=== PATIENT | male | born 1935 | race Caucasian/White ===

== ENCOUNTER 2016-11-26 21:29 | Emergency (ER) | payer OTHER ==
[2016-10-15 16:42] VITALS: Ht 172.7 cm; Wt 95.3 kg
[~2016-11-26] VITALS: Ht 172.7 cm; Wt 95.3 kg
[~2016-11-26 21:29] MED LIST: ACET325T53 PO; AMPI1.5V IV; DOCU-144 PO; FAMO20TA8 PO; FURO-150 PO; GLIP5TAB13 PO; GLU850 PO; LISI10TA5 PO; LORA-258 PO; METO25TA6 PO; ONDA4TAB5 PO; POTA-118 PO; RIVA20TA PO; SIMV20TA2 PO; SSNOVOLOG SUBCUT; ZOLP5TAB2 PO; [UNRECOGNIZED DRUG - CODE] IV
--- NOTE | 2016-11-26 21:30 | NUR ---
Patient to ER bed 08 to gown for evaluation. Side rails up.
[2016-11-26 21:40] VITALS: BP 113/50; PULSE 79; RESP 16; TEMP 98.4; O2SAT 94
--- NOTE | 2016-11-26 21:40 | NUR ---
PT IN BED 8 S/P TRIP AND FALL, DENIES INJURIES. DR BLACKBURN AWARE.
--- NOTE | 2016-11-26 21:50 | NUR ---
Patient transported to radiology via GURNEY, accompanied by TAPPER HELPER.
--- NOTE | 2016-11-26 22:00 | NUR ---
Mary yancey in [facility] - 11/27/16 at 0006 by SDEDWLA Patient transported to radiology via deandra, accompanied by fire protection engineering technician.
--- NOTE | 2016-11-26 22:04 | NUR ---
Returned from radiology, back to [facility].
--- NOTE | 2016-11-26 22:06 | NUR ---
ER at bedside examining patient.
--- NOTE | 2016-11-26 22:30 | NUR ---
Mary yancey in [facility] - 11/27/16 at 0009 by SDEDWLA Returned from radiology, back to [facility].
[2016-11-26 22:41] LABS: BASOPHILS % (AUTO) 0.4 % (0.0-2.0); EOSINOPHILS % (AUTO) 0.1 % (0.0-4.0); HEMATOCRIT 28.9 % (36-54); HEMOGLOBIN 8.8 g/dL (14.0-18.0); LYMPHOCYTES # (AUTO) 0.7 K/uL (1.0-5.5); LYMPHOCYTES % (AUTO) 11.8 % (20.5-51.5); MEAN CORPUSCULAR HEMOGLOBIN 21 pg (27-31); MEAN CORPUSCULAR HGB CONC 31 % (32-36); MEAN CORPUSCULAR VOLUME 69 fL (79.0-98.0); MONOCYTES # (AUTO) 0.4 K/uL (0.0-1.0); NEUTROPHILS # (AUTO) 5.2 K/uL (1.8-7.7); NEUTROPHILS % (AUTO) 80.7 % (40.0-70.0); PLATELET COUNT (AUTO) 231 K/uL (130-430); RED BLOOD CELL COUNT(AUTO) 4.18 MIL/uL (4.2-6.2); RED CELL DISTRIBUTION WIDTH 21.4 % (9.0-15.0); WHITE BLOOD COUNT (AUTO) 6.4 K/uL (4.8-10.8)
[2016-11-26 22:50] LABS: ANION GAP 10 (5-15); CALCIUM 8.4 mg/dL (8.4-11.0); CHLORIDE 102 mmol/L (98-107); GLUCOSE 167 mg/dL (70-99); POTASSIUM 3.4 mmol/L (3.5-5.1); SODIUM SERUM 137 mmol/L (136-145); UREA NITROGEN, BLOOD 38 mg/dL (8-21)
[2016-11-26 22:55] LABS: ALANINE AMINOTRANSFERASE 10 U/L (12-78); ALBUMIN 2.6 g/dL (3.4-4.8); ASPARTATE AMINOTRANSFERASE 11 U/L (10-37); TOTAL BILIRUBIN 0.4 mg/dL (0.0-1.0); TOTAL PROTEIN, SERUM 6.6 g/dL (6.4-8.3)
--- NOTE | 2016-11-26 23:30 | NUR ---
Patient resting quietly. No acute distress noted. Vital signs within normal range.
[2016-11-26 23:37] LABS: BILIRUBIN,URINE NEGATIVE (NEGATIVE); BLOOD, URINE 2+ (NEGATIVE); CLARITY/URINE CLOUDY (CLEAR); COLOR,URINE YELLOW (YELLOW); GLUCOSE,URINE NEGATIVE (NEGATIVE); KETONES,URINE NEGATIVE (NEGATIVE); LEUKOCYTE ESTERASE ,URINE 3+ (NEGATIVE); NITRITE, URINE POSITIVE (NEGATIVE); PROTEIN URINE TRACE (NEGATIVE); UROBILINOGEN,URINE 0.2 (0.2-1.0)
[2016-11-26 23:46] LABS: WBC,URINE >100 /HPF (0-3)
[2016-11-26 23:47] LABS: BACTERIA,URINE MANY /HPF (None Seen)
[2016-11-26 23:48] LABS: MUCUS,URINE None Seen /LPF (None Seen)
[2016-11-27] MEDS ORDERED: CIPROFLOXACIN HCL 500 MG TABLET PO ONE (00:15)
--- NOTE | 2016-11-27 01:50 | NUR ---
Patient given written and verbal discharge instructions and verbalizes understanding. ER MD discussed with patient the results and treatment provided. Given copies of tests performed in ER. Patient in stable condition. ID arm band removed. Rx of cipro given. Patient educated on pain management and to follow up with PMD. Pain Scale 0/10. Opportunity for questions provided and answered.Called pt's facility at [place] verbal report given to staff. Left via gurney with [facility] ambulance.stable upon discharge.
[2016-11-27 02:02] VITALS: BP 114/65; PULSE 78; RESP 16; TEMP 98.4; O2SAT 97
== END 2016-11-27 02:02 | disposition home or self-care (01) ==
LOC: SED 21:29
DX: N39.0 Urinary tract infection, site not specified (principal); S60.511A Abrasion of right hand, initial encounter; I11.0 Hypertensive heart disease with heart failure; I50.9 Heart failure, unspecified; E11.29 Type 2 diabetes mellitus with other diabetic kidney complication; N28.9 Disorder of kidney and ureter, unspecified; Z79.4 Long term (current) use of insulin; W05.0XXA Fall from non-moving wheelchair, initial encounter; Y93.89 Activity, other specified; Y92.89 Other specified places as the place of occurrence of the external cause; Y99.8 Other external cause status
CPT/HCPCS: 36415; 70450-TC; 71010; 80053; 81000-TC; 83605; 85025; 87040-TC; 87086; 87186-TC; 93005; 99285